=== PATIENT | female | born 1935 | race Caucasian/White ===

== ENCOUNTER 2023-06-13 06:21 | Emergency (ER) | payer MEDICARE ==
[~2023-06-13] VITALS: Ht 157.5 cm; Wt 65.8 kg
[2023-06-13 07:44] LABS: *CLARITY,URINE CLEAR (CLEAR); *COLOR,URINE OTHER (YELLOW)
[2023-06-13 07:45] LABS: *BILIRUBIN,URIN NEGATIVE (NEGATIVE); *BLOOD, URINE 3+ (NEGATIVE); *KETONES,URINE NEGATIVE (NEGATIVE); *PROTEIN,URINE NEGATIVE (NEGATIVE); *UROBILINOGEN,URINE 0.2 E.U./dl (NORMAL); LEUKOCYTE ESTERASE ,URINE 1+ (NEGATIVE); NITRITE, URINE NEGATIVE (NEGATIVE); UGLUCOSE NEGATIVE (NEGATIVE)
[2023-06-13] MEDS ORDERED: NITROFURANTOIN/NITROFURAN MAC 100 MG CAPSULE PO ONE ×2 (08:30→08:33)
[2023-06-13] MEDS ORDERED: PHENAZOPYRIDINE HCL 100 MG TABLET PO ONE (08:30)
[2023-06-13] MEDS ORDERED: NITR100C11 PO (08:31)
[2023-06-13] MEDS ORDERED: PHEN-704 PO (08:31)
[2023-06-13] MEDS ORDERED: PHENAZOPYRIDINE HCL 100 MG TABLET ONE (08:33)
[2023-06-13 08:38] LABS: BACTERIA,URINE RARE /HPF (NONE SEEN); SQUAMOUS EPITHELIAL CELL,UR FEW /HPF (NONE SEEN); WBC,URINE 20-50 /HPF (0-3)
[2023-06-13 08:42] VITALS: BP 111/80; TEMP 98; O2SAT 99
== END 2023-06-13 08:44 | disposition home or self-care (01) ==
LOC: ER 06:25
DX: N39.0 Urinary tract infection, site not specified (principal); E78.00 Pure hypercholesterolemia, unspecified; J43.9 Emphysema, unspecified; F17.200 Nicotine dependence, unspecified, uncomplicated; Z79.899 Other long term (current) drug therapy; Z90.49 Acquired absence of other specified parts of digestive tract; Z60.2 Problems related to living alone
CPT/HCPCS: A4606; A4663